=== PATIENT | female | born 1995 | race Two or more races ===

== ENCOUNTER 2021-02-19 08:58 | Emergency (ER) | payer MEDICAID ==
[~2021-02-19] VITALS: Ht 162.6 cm; Wt 90.7 kg
[2021-02-19 10:30] LABS: Urine Bacteria FEW /hpf (None Seen); Urine Blood Negative /uL (Negative); Urine Specific Gravity 1.011 (1.001-1.035); Urine WBC 59 /hpf (0 - 5)
[2021-02-19 10:49] LABS: Basophils # (auto) 0 10 ^3/uL (0-0.2); Basophils % (auto) 0.4 % (0.0-2.0); Eosinophils # (auto) 0 10 ^3/uL (0-0.8); Monocytes # (auto) 0.5 10 ^3/uL (0-1.3); Neutrophils # (auto) 3.9 10 ^3/uL (1.6-8.6); Red Cell Distribution Width 19.5 % (11.8-14.3)
[2021-02-19 10:52] LABS: Eosinophils % (auto) 0.7 % (0.0-7.0); Hematocrit 20.4 % (36.0-46.0); Lymphocytes # (auto) 1.9 10 ^3/uL (0.4-5.4); Lymphocytes % (auto) 30.5 % (10.0-50.0); Mean Corpuscular Hemoglobin 16.1 pg (28.0-32.0); Mean Corpuscular Hgb Conc. 30.5 g/dL (32.0-36.0); Mean Corpuscular Volume 52.8 fL (80.0-100.0); Monocytes % (auto) 7.8 % (0.0-12.0); Neutrophils % (auto) 60.6 % (37.0-80.0); Red Blood Cells 3.86 10^6/uL (4.0-5.20); White Blood Cell 6.4 10^3/uL (4.4-10.8)
[2021-02-19 11:02] LABS: Hemoglobin 6.2 g/dL (12.2-16.2)
[2021-02-19] MEDS ORDERED: SODIUM CHLORIDE 0.9% 1,000 ML IV ONE (11:15)
[2021-02-19] MEDS ORDERED: NITROFURANTOIN 100 mg CAP PO ONE (12:15)
[2021-02-19 12:32] LABS: INR 0.97 (0.9-1.15); Partial Thromboplastin Time 22.6 sec (23.0-31.2)
[2021-02-19 12:57] LABS: Calcium 8.1 mg/dL (8.5-10.1)
[2021-02-19 13:00] LABS: BUN/Creatinine Ratio 12.7; Bilirubin, Total 0.2 mg/dL (0.2-1.0); Total Protein 7.4 g/dL (6.4-8.2)
[2021-02-19 16:05] VITALS: BP 99/44
[2021-02-19 16:20] VITALS: BP 93/40
[2021-02-19 18:20] VITALS: BP 91/56
== END 2021-02-19 19:00 | disposition home or self-care (01) ==
LOC: ER 08:58
DX: O20.0 Threatened abortion (principal); O23.41 Unspecified infection of urinary tract in pregnancy, first trimester; O99.011 Anemia complicating pregnancy, first trimester; Z3A.10 10 weeks gestation of pregnancy
CPT/HCPCS: 36415; 36430; 76801; 80053; 81001; 84702; 85025; 85049; 85610; 85730; 86850; 86870; 86900; 86901; 86902; 86905; 96360; 99291; J7030; P9016; 86922